=== PATIENT | female | born 1960 | race Hispanic/Latino ===

== ENCOUNTER → 2024-05-26 | Day surgery (SDC) | payer MEDICARE, OTHER ==
[~2024-05-26] MED LIST: ABILIFY5 MG PO; ACETAMINOPHEN325 M1 PO; ATIVAN1 MG PO; DEPAKOTE SPRIN125 MG PO; DOCUSATE SODIU100 MG PO; DULCOLAX10 MG PR; KEPPRA250 MG PO; LACTATED RINGER'S 1,000 ML ONE; LACTULOSE20 GM/30 M PO; LEVOTHYROXINE25 MCG PO; LIDOCAINE 4% PATCH TP ONE; LIDOCAINE 4% TD; LIDOCAINE HCL 2% LOCAL INJ 5 ML SDV VIAL INJ ONE; LYRICA50 MG PO; PROPOFOL IV EMULSION 10 MG/ML 20 ML VIAL ONE
[2024-05-26 13:41] VITALS: TEMP 97.1
[2024-05-26 14:08] VITALS: BP 128/81; PULSE 53; RESP 18; O2SAT 98
== END | disposition home or self-care (01) ==
LOC: OR 10:21
PROVIDERS: ATTEND Internal Medicine Gastroenterology
DX: K21.9 Gastro-esophageal reflux disease without esophagitis (principal); K29.50 Unspecified chronic gastritis without bleeding; R13.10 Dysphagia, unspecified; K44.9 Diaphragmatic hernia without obstruction or gangrene; I86.4 Gastric varices; R19.8 Other specified symptoms and signs involving the digestive system and abdomen; B19.20 Unspecified viral hepatitis C without hepatic coma; D64.9 Anemia, unspecified; R56.9 Unspecified convulsions; G25.81 Restless legs syndrome; E03.9 Hypothyroidism, unspecified; F20.9 Schizophrenia, unspecified; F31.9 Bipolar disorder, unspecified; Z79.899 Other long term (current) drug therapy; Z86.73 Personal history of transient ischemic attack (TIA), and cerebral infarction without residual deficits
CPT/HCPCS: 43239; 88112; 88305; 88312; 88342; 93005; J2001; J2704; J7121; 88300

== ENCOUNTER → 2024-06-23 | Day surgery (SDC) | payer MEDICARE, OTHER ==
[~2024-06-23] MED LIST changes: +EPHEDRINE SULFATE INJ 50 MG/ML VIAL ONE; +GLYCOPYRROLATE INJ 0.2 MG/ML VIAL ONE; +LABETALOL HCL 5 MG/ML 20ML VIAL ONE; -LACTATED RINGER'S 1,000 ML ONE; -LIDOCAINE 4% PATCH TP ONE; -LIDOCAINE HCL 2% LOCAL INJ 5 ML SDV VIAL INJ ONE; -PROPOFOL IV EMULSION 10 MG/ML 20 ML VIAL ONE; +PROPOFOL IV EMULSION 50 ML IV ONE
[2024-06-23] MEDS: LACTATED RINGER'S 1,000 ML ONE (07:07)
[2024-06-23 07:18] LABS: BASOPHILS % 1.3 % (0.0-1.0); EOSINOPHILS # (AUTO) 0.1 (0.0-0.4); EOSINOPHILS % 3.5 % (0.0-6.0); HEMATOCRIT 45.3 % (34.2-44.1); HEMOGLOBIN 14.3 g/dL (12.0-16.0); LYMPHOCYTES # (AUTO) 1.4 (1.0-3.2); LYMPHOCYTES % 45.7 % (18.0-39.1); MEAN CORPUSCULAR HGB CONC 31.6 g/dL (31-35); MEAN CORPUSCULAR VOLUME 98.3 fL (81-99); MONOCYTES # (AUTO) 0.3 (0.2-0.8); MONOCYTES % 10.9 % (4.4-11.3); NEUTROPHILS # (AUTO) 1.2 (2.1-6.9); NEUTROPHILS % 38.6 % (38.7-80.0); PLATELET COUNT 98 x10e3/uL (140-360); RED BLOOD COUNT 4.61 x10e6/uL (3.6-5.1); RED CELL DISTRIBUTION WIDTH 12.6 % (11.7-14.4); WHITE BLOOD COUNT 3.11 x10e3/uL (4.8-10.8)
[2024-06-23 09:20] VITALS: BP 115/65; PULSE 70; RESP 14; TEMP 97.5; O2SAT 98
== END | disposition home or self-care (01) ==
LOC: OR 05:50
PROVIDERS: ATTEND Internal Medicine Gastroenterology
DX: R19.8 Other specified symptoms and signs involving the digestive system and abdomen (principal); D12.3 Benign neoplasm of transverse colon; K64.8 Other hemorrhoids; K59.00 Constipation, unspecified; K21.9 Gastro-esophageal reflux disease without esophagitis; B19.20 Unspecified viral hepatitis C without hepatic coma; D64.9 Anemia, unspecified; Z79.899 Other long term (current) drug therapy; Z87.820 Personal history of traumatic brain injury
CPT/HCPCS: 36415; 45380; 45385; 85025; 88305; J2704; J3490; J7121; 45384